=== PATIENT | female | born 1940 | race Caucasian/White ===

== ENCOUNTER 2025-06-12 12:42 | Outpatient (AMB) | payer MEDICARE, MEDICAID, SELFPAY ==
--- NOTE | 2025-06-12 13:10 | A.OFFPC_ITS ---
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 Required: No Accompanied by: Daughter Allergies amlodipine Adverse Reaction (Intermediate, Verified 06/12/25 13:13) COUGH baclofen Adverse Reaction (Intermediate, Verified 06/12/25 13:13) LEG SWELLING hydrochlorothiazide (From Diovan HCT) Adverse Reaction (Intermediate, Verified 06/12/25 13:13) COUGH lisinopril Adverse Reaction (Intermediate, Verified 06/12/25 13:13) Cough nifedipine Adverse Reaction (Intermediate, Verified 06/12/25 13:13) Cough valsartan (From Diovan HCT) Adverse Reaction (Intermediate, Verified 06/12/25 13:13) COUGH Medication List - Last Reconciled 06/12/25 by Monica Alvarado MD albuterol sulfate mg inhalation QID albuterol sulfate 90 mcg/actuation (Ventolin HFA) 2 puffs inhalation Q4H PRN allopurinol 100 mg PO BID blood sugar diagnostic (FreeStyle Lite Strips) As directed fluticasone propionate 50 mcg/actuation 1 spray intranasal DAILY furosemide 40 mg PO DAILY glimepiride 1 mg PO BID hydralazine 50 mg PO TID lancets (FreeStyle Lancets) As directed levocetirizine 5 mg PO QPM metformin ER 500 mg PO DAILY methimazole 2.5 mg PO 2XW metoprolol tartrate 100 mg PO BID omeprazole 20 mg PO DAILY potassium chloride ER 10 mEq PO BID prednisone 20 mg PO DAILY simethicone (Gas Relief Extra Strength) 125 mg PO QID simvastatin 10 mg PO BEDTIME warfarin 1 - 3 mg PO DAILY Tobacco use date assessed: 06/12/25 Fall risk assessment: 1 Fall in past year Last assessed Fall Risk: 06/12/25 Dental Screening Dental Screen Date: 06/12/25 Did you have a dental visit in the last 12 months?: No Did you have a dental problem in the last 6 months where you did not have access to dental care?: No Was dental information given to patient?: No HPI HPI Comments History of Present Illness Details The patient is an 85 year old female presenting to reestablish care and for management of chronic conditions. Diabetes Mellitus: The patient is on Metformin and glimepiride for diabetes management; foot pain r elated to neuropathy noted. Essential Hypertension: Taking metoprolol and hydralazine for hypertension control, furosemide for prn leg swelling Atrial Fibrillation: Management includes Coumadin; considering home INR monitoring. Established with [facility] coumadin clinic. Hyperthyroidism: Managed with Methimazole; established with [facility] endocrinology Hearing Loss: Diminished hearing; referral to ENT planned Peripheral Neuropathy: Reports sharp, burning pain under feet due to neuropathy; Gabapentin not effective. Asthma-stable Gout-stable Social History: - Difficulty with mobility and uses walk er for ambulation - Hard of hearing and requires further e valuation for hearing loss - Experiencing functional limitations du e to foot pain Review of Systems - Auditory: Reports diminished hearing c apacity -Cardiovascular: Denies new cardiovascul ar symptoms -Neurological: Reports sharp burning and painful neuropathy in feet; - Extremities: Reports leg swelling when not elevated Physical Exam - Gen; NAD - Chest: CTABL - Cardiovascular- soft murmur across pre cordium - Abd: SNTND, +BS - Extremities- Mild edema in bilateral l egs noted, tender to touch Assessment and Plan 1. Diabetes Mellitus - Order A1c lab, trial of lyrica 25mg fo r neuropathy, has seen therapist asst before, will obtain records from previous office, daughter is unsure of name 2. Essential Hypertension - Continue antihypertensives, monitor BP 3. Atrial Fibrillation - Consider home INR monitoring 4. Hyperthyroidism - Order thyroid labs, follow up with end ocrinologist at least annually 5. Sensorineural Hearing Loss - Referral to ENT 6. Peripheral Neuropathy - Start Lyrica 25mg, monitor effectivene ss Follow up in 4 months Discussion Notes During the visit, I discussed the management of the patient's diabetes, hypertension, atrial fibrillation, and hyperthyroidism. I provided details on the initiation of Lyrica for neuropathy and its benefits for managing nerve pain. The possibility of using a home INR monitor was discussed for easier management of her anticoagulation therapy, considering her atrial fibrillation. For her hearing concerns, I recommended a referral to a hearing evaluation center to better address her diminished hearing capacity. Patient Instructions - Start taking Lyrica 25 mg as directed, inform of any side effects. - Follow through with ENT referral for f urther evaluation. - Discuss with family the possibility of home INR monitoring use. [facility] Medical History (Updated 06/12/25 @ 12:36 by Monica Alvarado MD) GERD (gastroesophageal reflux disease) Diabetes mellitus type 2 in obese Gout Hyperthyroidism Primary hypertension Asthma Atrial fibrillation CKD stage 3 secondary to diabetes Surgical History (Updated 06/12/25 @ 12:36 by Monica Alvarado MD) H/O tubal ligation Social History Housing: House Patient Tobacco Use Status: Never used Tobacco e-Cigarette/Vaping Use: Never Used Current occupational status: retired Questionnaire AUDIT C Alcohol Use Questionnaire (AUDIT-C) 1. How often do you have a drink containing alcohol?: Never 3. How often do you have six or more drinks on one occasion?: Never Total Score: 0 Physical exam (Primary Care) Vital Signs: Last Vital Signs Temp 97.1 F 06/12/25 13:15 Pulse 64 06/12/25 13:15 Resp 16 06/12/25 13:15 BP 124/80 06/12/25 13:15 Pulse Ox 96 06/12/25 13:15 BMI result Body Mass Index 41.1 Tobacco/Smoking Status: Tobacco use Status Tobacco use date assessed 06/12/25 06/12/25 13:22 Patient Tobacco Use Status Never used Tobacco 06/12/25 13:22 e-Cigarette/Vaping Use Never Used 06/12/25 13:22 Coding Level of Care Code Est Pt Level 4 (33056) Complex EM visit Add On G2211 Diagnoses Primary hypertension I10 Diabetes mellitus type 2 in obese E11.69; E66.9 Atrial fibrillation I48.91 Hyperthyroidism E05.90 Gout M10.9 Asthma J45.909 Assessment & Plan Assessment & Plan (1) Primary hypertension: Code(s): I10 - Essential (primary) hypertension Category: Medical (2) Diabetes mellitus type 2 in obese: Code(s): E11.69 - Type 2 diabetes mellitus with other specified complication; E66.9 - Obesity, unspecified Category: Medical (3) Atrial fibrillation: Code(s): I48.91 - Unspecified atrial fibrillation Category: Medical (4) Hyperthyroidism: Code(s): E05.90 - Thyrotoxicosis, unspecified without thyrotoxic crisis or storm Category: Medical (5) Gout: Code(s): M10.9 - Gout, unspecified Category: Medical (6) Asthma: Code(s): J45.909 - Unspecified asthma, uncomplicated Category: Medical Plan Plan - Initiate Lyrica, assess neuropathy pain response. - Referral for hearing evaluation. - Consider home INR monitoring. - Continue hypertension management, monitor BP. Orders: Orders Complete Blood Count Auto Diff Today E05.90 - Thyrotoxicosis, unspecified without thyrotoxic crisis or storm, E11.22 - Type 2 diabetes mellitus with diabetic chronic kidney disease, E11.69 - Type 2 diabetes mellitus with other specified complication, E66.9 - Obesity, unspecified, I10 - Essential (primary) hypertension, I48.91 - Unspecified atrial fibrillation, M10.9 - Gout, unspecified, N18.30 - Chronic kidney disease, stage 3 unspecified Ferritin Today E05.90 - Thyrotoxicosis, unspecified without thyrotoxic crisis or storm, E11.22 - Type 2 diabetes mellitus with diabetic chronic kidney disease, E11.69 - Type 2 diabetes mellitus with other specified complication, E66.9 - Obesity, unspecified, I10 - Essential (primary) hypertension, I48.91 - Unspecified atrial fibrillation, M10.9 - Gout, unspecified, N18.30 - Chronic kidney disease, stage 3 unspecified TSH reflex Free T4 Today E05.90 - Thyrotoxicosis, unspecified without thyrotoxic crisis or storm, E11.22 - Type 2 diabetes mellitus with diabetic chronic kidney disease, E11.69 - Type 2 diabetes mellitus with other specified complication, E66.9 - Obesity, unspecified, I10 - Essential (primary) hypertension, I48.91 - Unspecified atrial fibrillation, M10.9 - Gout, unspecified, N18.30 - Chronic kidney disease, stage 3 unspecified Vitamin D 25-OH Total Today E05.90 - Thyrotoxicosis, unspecified without thyrotoxic crisis or storm, E11.22 - Type 2 diabetes mellitus with diabetic chronic kidney disease, E11.69 - Type 2 diabetes mellitus with other specified complication, E66.9 - Obesity, unspecified, I10 - Essential (primary) hypertension, I48.91 - Unspecified atrial fibrillation, M10.9 - Gout, unspecified, N18.30 - Chronic kidney disease, stage 3 unspecified Magnesium Today E05.90 - Thyrotoxicosis, unspecified without thyrotoxic crisis or storm, E11.22 - Type 2 diabetes mellitus with diabetic chronic kidney disease, E11.69 - Type 2 diabetes mellitus with other specified complication, E66.9 - Obesity, unspecified, I10 - Essential (primary) hypertension, I48.91 - Unspecified atrial fibrillation, M10.9 - Gout, unspecified, N18.30 - Chronic kidney disease, stage 3 unspecified Hemoglobin A1c Today E05.90 - Thyrotoxicosis, unspecified without thyrotoxic crisis or storm, E11.22 - Type 2 diabetes mellitus with diabetic chronic kidney disease, E11.69 - Type 2 diabetes mellitus with other specified complication, E66.9 - Obesity, unspecified, I10 - Essential (primary) hypertension, I48.91 - Unspecified atrial fibrillation, M10.9 - Gout, unspecified, N18.30 - Chronic kidney disease, stage 3 unspecified IRON PROFILE Today E05.90 - Thyrotoxicosis, unspecified without thyrotoxic crisis or storm, E11.22 - Type 2 diabetes mellitus with diabetic chronic kidney disease, E11.69 - Type 2 diabetes mellitus with other specified complication, E66.9 - Obesity, unspecified, I10 - Essential (primary) hypertension, I48.91 - Unspecified atrial fibrillation, M10.9 - Gout, unspecified, N18.30 - Chronic kidney disease, stage 3 unspecified Microalbumin, Random (w Creat) Today E05.90 - Thyrotoxicosis, unspecified without thyrotoxic crisis or storm, E11.22 - Type 2 diabetes mellitus with diabetic chronic kidney disease, E11.69 - Type 2 diabetes mellitus with other specified complication, E66.9 - Obesity, unspecified, I10 - Essential (primary) hypertension, I48.91 - Unspecified atrial fibrillation, M10.9 - Gout, unspecified, N18.30 - Chronic kidney disease, stage 3 unspecified Vitamin B12 Today E05.90 - Thyrotoxicosis, unspecified without thyrotoxic maru is or storm, E11.22 - Type 2 diabetes mellitus with diabetic chronic kidney disease, E11.69 - Type 2 diabetes mellitus with other specified complication, E66.9 - Obesity, unspecified, I10 - Essential (primary) hypertension, I48.91 - Unspecified atrial fibrillation, M10.9 - Gout, unspecified, N18.30 - Chronic kidney disease, stage 3 unspecified Uric Acid Today M10.9 - Gout, unspecified Comprehensive Met. Panel Today E11.69 - Type 2 diabetes mellitus with other specified complication, E66.9 - Obesity, unspecified, I10 - Essential (primary) hypertension Lipid Panel Today E11.69 - Type 2 diabetes mellitus with other specified complication, E66.9 - Obesity, unspecified, I10 - Essential (primary) hypertension Referrals Anticoagulation Service/Clinic I48.91 - Unspecified atrial fibrillation Medications: New pregabalin (Lyrica) 25 mg PO BEDTIME 90 caps 1RF
[2025-06-12 13:15] VITALS: BP 124/80; PULSE 64; RESP 16; TEMP 36.2; O2SAT 96; BMI 41.1
--- OUTSIDE RECORDS SUMMARY | 2025-06-12 15:24 | XMS_ITS | Data Portability ---
Author Organization [place] - [facility], [facility] - [facility] Address [address] [place] [address] Care Team Providers Care Coat Padder Name Role Phone MARK LIN Primary Care Provider [phone] Assessment Encounter Date Assessment Date Assessment LastModified by Organization Details LastModified Time 08/16/2018 08/16/2018 Overview/History : 78 yo female with past medical history significant for asthma, CAD, depression, diabetes, high cholesterol, HTN who presents with complain of redness, swelling and pain of a left great toe X4 days. Patient rates her pain at 10/10; states symptoms started instantly. Denies injury, open wounds, or similar symptoms in the past. Patient tried rubbing Vicks, ice, elevation, and Epson salt soaks with little to none relief. She also took Tylenol with codeine for pain. Denied ever, chills, swelling of other joints, myalgias, open wounds, recent hospitalization, shortness of breath, cough, chest pain or pain with deep breaths Exam: elderly female well nourished, well developed, non toxic or ill appearing; in no acute distress Heart RRR without audible murmurs Lungs are clear to auscultation bilaterally lower extremities are well perfused without cyanosis or edema left great toe is swollen, erythematous warm to touch and painful to palpation DDx considered, but not limited to: Gout - most likely diagnosis based on clinical presentation DVT - possible, unilateral leg swelling patient has history of intermittent afib, on warfarin, last INR unknown; will order US Septic arthritis - unlikely bursitis - unlikely Work up/Results: Doppler US left lower extremity pending Chem 8 : Na 135; K 2.7; Cl 90; iCa 1.11; TCO2 34; Glu 138; BUN 34; Crea 1.3; HCT 38; Hb 12.9; angap 16 Plan/Discussion: - Based on clinical presentation Gout flare is the most likely diagnosis - will order doppler US of left lower extremity to r/o DVT - Chem 8 notable for K of 2.7; patient stopped taking her K supplement; Advised pat to restart K supplements and follow up with PCP within 2-3 days - I discussed the patient case with Dr. Murdock and under their direction they prescribed the following medications: Colchecine 0.6 PO day 1 take 2 tabs; day 2-6 take 1 tab a day; Zofran 4mg PO 1tab TID PRN for nausea; Naproxen 500mg PO 1 tab BID PRN for pain - advised patient on nausea and diarrhea as side effects of colchecine - provided patient education about gout - follow up with PCP, Dr. Lin, if symptoms do not resolve or worsen with treatment - seek immediate medical attention if your symptoms worsen, you develop fever, chills, severe pain, can't feel your toes, increased swelling or any other concerning symptoms. Time On Scene with Patient: 00:59:02 [email or web address] Not available 08/17/2018 16:53:30 04/16/2020 04/16/2020 Overview/History : 79yoF known to pmx afib, HTN, HDL, lymphedema, NIDM is seen today for diarrhea. The patient filled a new rx of Metformin last week and developed diarrhea. She was called by the pharmacy stating the Metformin was recalled and given a new rx with a new lot number. The patient has not yet taken it for the past 2 days as she is nervous to again have diarrhea. She denies hematochezia, melena, abdominal pain, nausea, vomiting, or recent abx use. The patient has also been on prednisone for suspected gout in her LE. Reports elevated sugars and some increase in LE swelling. Patient does admit to eating ham and cheese sandwiches daily. Reports slight sob without cough or fever. No chest pain. Exam: VSS patient well appearing sitting comfortably on the cough Heart irreg irreg +2 bilat pitting edema without any calf redness or pain Lungs CTA bilat Abdomen soft and non tender DDx considered, but not limited to: hyperglycemia doubt DKA as no sig elevated anion gap and patient is without nausea or vomiting C diff-doubt as no recent abx use or known exposure diverticulitis-mata bt as no long or abdominal pain GI bleed-doubt as HH stable CHF overload-considere d with worsened LE edema and diet high in salt PE doubt as patient not tachycardic or hypoxic and patient is on Warfarin Work up/Results: chem 8 performed demonstrating hypokalemia and elevated glucose Plan/Discussion: Patient is hemodynamically stable non toxic appearing. Patient encouraged to restart Metformin as she was given a nex rx with a new lot number. Patient was educated on low sodium low carb diet. Patient was also educated on importance of taking her furosemide as she does appear to have some swelling in her LE. She will stop her Prednisone at this time as she is not demonstrating any signs of gout at this time and that could be contributing to her elevated blood sugars and LE swelling. The patient was instructed that if with these changes she continues to have diarrhea, LE swelling or uncontrolled blood sugars to again seek medical care. The daughter is actively working on follow up with the PCP. Both the patient and daughter verbalized understanding of overall plan and were agreeable. In order to obtain further information and compare any laboratory results/values, I have accessed old patient records. This information was pertinent in my medical decision making today. Lab Results BMP + ionized calcium, serum or plasma glu: 219mg/dL ref: 70-105 BUN: 23mg/dL ref: 8-26 crea: 1.0mg/dL ref: 0.6-1.3 Na: 136mmol/L ref: 138-146 K: 3.0mmol/L ref: 3.5-4.9 cL: 94mmol/L ref: 98-109 TCO2: 28mmol/L ref: 24-29 angap: 17mmol/L ref: 10-20 ica: 1.19mmol/L ref: 1.12-1.32 HCT: 41%pcv ref: 37-47 Hb: 13.9g/dL ref: 12-17 Time On Scene with Patient: 00:41:52 [email or web address] Not available 04/17/2020 12:35:15 04/05/2021 04/05/2021 Proper Personal Protective Equipment (PPE), including gloves, gown, shoe covers, eye protection and masks were donned and doffed appropriately and all equipment cleaned using approved technique with germicidal disposable wipes prior to and after care of this patient according to [facility]'s infection prevention protocols. Overview/History: 80 yo Turkish speaking female who two daughters are present and assisting with interpretation and HPI. PMHx includes asthma, CAD, depression, NIDDM, HLD, HTN, hypothyroidism, AFIB. Patient has been exposed to influenz through contact with her grand children. Symptoms of fever, chills, runny nose, congestion, cough, malaise, fatigue stated about four days ago. Patient has poor PO intake Exam: Non-toxic appearing, well nourished. A/Ox2, forgetful at baseline. HEENT: Normal cephalic, skin intact. PERRLA, normal mucous membranes, no evidence of foreign objects. Turbinates pink, non boggy, no erythema, no evidence of bleeding or discharge, normal mucous membranes. No evidence of thrush, normal appearing pharynx, tonsils present non erythemic, no exudate present, no evidence of cobble stoning. Normal lymph nodes, no lymphedema or adenopathy. LS CTA bilaterally. Normal RR on RA. No use of accessory muscles. HR and rhythm regular. S1, S2. No murmur, gallop, or rub/ Normal pulses. No edema. BS x4 quad. Abd soft, non-tender and non-distended. No hepatosplenomegaly . No CVA or suprapubic tenderness. Normal ROM, ambulating well around home without assistive device. Good CMS present. No rash, erythema or ecchymosis. Skin is clean dry and intact without evidence of wounds or lacerations. DDx considered, but not limited to: viral syndrome most likely with known sick contact, symptoms. COVID-19 possible with known sick contact, symptoms, delta variant most prevalent in the community, Hypokalemia w/Potassium at 2.3 via POC chem 8, on repeat 2.5 Work up/Results: POC rapid COVID-19 which resulted negative, POC chem 8: K 2.3, repeat K 2.5 Plan/Discussion: POC rapid COVID-19, POC chem 8: K 2.3, repeat K 2.5; Glucose 173. Discussed with patient and family hypokalemia is serious and needs to be replaced in the hospital setting where she can be monitored. Called and spoke with supervising physician Dr. Robins who agreed; potassium in the low 2's with PMHx of AFIB is appropriate for escalation; I agreed with Dr. Robins. Discussed escalation to ED with family and patient; all agreed[facility] I called [facility] expect line and gave report. #20 PIV in left AC with IVNS 600ml infused; saline locked for trip to the ED w/EMS.Report given to EMS, patient transported via stretcher into ambulance w/o trouble. Family following ambulance to hospital. In order to obtain further information and compare any laboratory results/values, I have accessed patient records on the [employer]. This information was pertinent in my medical decision making today. [email or web address] Not available 04/05/2021 19:44:48 Plan of Treatment Reminders Order Date Submit Date Provider Last Modified By Organization Details Last Modified Time Details Appointments None recorded. Lab rapid SARS CoV + SARS CoV 2 Ag, QL IA, respiratory specimen 2020 021 [email or web address] [facility], [address], [place], [address], 1 19:18:54 BMP + ionized calcium, serum or plasma 2020 [facility] [address], [place], [address], 1 21:54:02 BMP + ionized calcium, serum or plasma 2019 [facility] [address] [place], [address], 1 05:01:36 BMP + ionized calcium, serum or plasma 2018 [email or web address], [address], [place], [address], 9 21:42:33 Referral None recorded. Procedures None recorded. Surgeries None recorded. Imaging US, duplex, venous, lower extremity 2018 019 [facility] [address], [place], [address], 9 19:19:29 Medication Orders sodium chloride 0.9 % intravenous solution 2020 021 [email or web address] Not available 12:41:09 potassium chloride ER 10 mEq tablet,exte nded release 2019 020 [email or web address] Not available 19:48:58 Patient TargetsNo targets recorded. Patient Instructions Encounter Date Encounter Id Patient Instructions Last Modified By Organization Details Last Modified Time 08/16/2018 [id number] YOU WERE SEEN FO R LEFT LEG PAIN AND SWELLING. BASED ON PHYSICAL EXAM YOU HAVE GOUT FLARE. I ORDER ULTRASOUND OF YOUR LEG TO BE DONE AT HOME. WE WILL NOTIFY YOU WHEN RESULTS ARE AVAILABLE. YOUR POTASSIUM LEVELS ARE LOW, PLEASE START TAKING YOUR POTASSIUM SUPPLEMENTS. I SENT PRESCRIPTION FOR COLCHECINE, NAPROXEN, AND ZOFRAN TO YOUR PHARMACY. PLEASE, TAKE DIRECTED. NAUSEA AND DIARRHEA ARE COMMON SIDE EFFECTS OF THE MEDICATION YOU WILL BE TAKING FOR GOUT. IF YOU DEVELOPE LOOSE STOOL STOP TAKING COLCHECINE. YOU MAY ALSO STOP TAKING COLCHECINE IF YOUR PAIN RESOLVES YOU CAN TAKE ZOFRAN FOR NAUSEA AND NAPROXEN FOR PAIN PLEASE, FOLLOW UP WITH YOUR PRIMARY CARE DOCTOR WITHIN 2-3 DAYS SEEK IMMEDIATE MEDICAL ATTENTION IF YOUR PAIN GETS WORSE DESPITE TREATMENT, YOUR CANT'S FEEL YOUR TOES, DEVELOPE FEVER CHILLS, INCREASED SWELLING OR ANY OTHER CONCERNING SYMPTOMS GOUT OVERVIEW Gout is a form of arthritis that can cause pain and swelling in the joints. It develops in some people who have chronically high levels of urate (also called uric acid) in their blood; urate can form urate crystals that deposit in tissues. The medical term for high blood urate levels is hyperuricemia. Not everyone with hyperuricemia develops gout; up to two-thirds of people with hyperuricemia never develop symptoms, but it is unclear why this is. In people who do have gout, the symptoms result from the body's reaction to deposits of urate crystals in tissues. Although the joints are the most commonly affected part of the body, related crystals called uric acid crystals can form in the kidney or other parts of the urinary tract, where they can occasionally impair kidney function or cause urinary tract stones. Gout is different from another disease called calcium pyrophosphate crystal deposition (CPPD) disease (formerly called pseudogout ), which is discussed separately. This other condition develops in some people in response to the presence of a different type of crystal known as a calcium pyrophosphate (CPP) crystals. GOUT RISK FACTORS Gout usually develops in adulthood and is rare in children. It commonly develops earlier in adult men (often at ages 30 to 45 years) than in women (usually after age 55) and is particularly common in people older than 65 regardless of gender. It is estimated that gout affects nearly 4 percent of adults in the [place]. There are several medical conditions and lifestyle factors that increase a person's risk of developing gout, including: Obesity High blood pressure Chronic kidney disease Fasting Consuming excessive amounts of alcohol (particularly beer, whiskey, gin, vodka, or rum) on a regular basis Overeating Consuming large amounts of meat, seafood, or beverages containing high fructose corn syrup (such as non-diet sodas) Taking medications that affect blood levels of urate (especially diuretics) In people already diagnosed with gout (referred to as established gout ), there are also certain characteristics that increase the risk of repeated gout flares. These include: Injury or recent surgery Fasting Consuming excessive amounts of alcohol (wine may also be implicated as a risk for additional gout flares in people who have had prior flares) Overeating Taking medications that affect blood levels of urate GOUT SYMPTOMS Gout flares (also called gout attacks) are sudden episodes of severe joint pain, usually with redness, swelling, and tenderness of the joint. Although a gout flare typically affects a single joint, some people develop a few inflamed joints at the same time. Gout flares start more often overnight and in the general car yard supervisor hours than during the day, but they can occur at any time. The pain and inflammation usually reach their peak intensity within 12 to 24 hours and generally improve completely within a few days to several weeks, even if untreated. It is not clear how the body turns off a gout flare. The characteristic pain and inflammation of gout develop when white blood cells and cells in the joint linings attempt to surround and digest urate crystal deposits. These cells recognize the crystal deposits as foreign material and release chemical signals that contribute to the pain, swelling, and redness associated with a gout flare. PHASES OF GOUT There are three main phases of gout: gout flare, intercritical gout, and tophaceous gout. Gout flare Initial gout flares usually involve a single joint, most often your big toe or knee. Over time, flares can begin to involve multiple joints at once and may be accompanied by fever. People with osteoarthritis in their fingers may experience their first gout flares in the fingers rather than the toes or knees. Intercritical gout The time between gout flares is known as an intercritical period. A second gout flare typically occurs within two years, and additional gout flares may occur thereafter. If your gout is untreated over a period of several years, the time between gout flares may shorten, and your gout flares may become increasingly severe and prolonged and involve multiple joints. Tophaceous gout People who have repeated gout flares or persistent hyperuricemia for many years can develop tophaceous gout. This term describes the accumulation of large numbers of urate crystals in masses called tophi. People with this form of gout develop tophi in joints, bursae (the fluid-filled sacs that cushion and protect tissues), bones and cartilage, or under the skin. Tophi may cause erosion of the bone and eventually joint damage and deformity (called gouty arthropathy). Developing tophi near the knuckles or small joints of the fingers (picture 1) can be a distressing cosmetic problem. Tophi are usually not painful or tender. However, they can become inflamed and can cause symptoms like those of a gout flare. Tophaceous gout used to be more common in the past, when treatment for hyperuricemia was unavailable. Certain groups are still at risk for tophaceous gout, including: People who are treated with a medication called cyclosporine after organ transplantation Those who cannot tolerate or do not receive adequate doses of medications to treat hyperuricemia (for example, due to kidney failure or drug allergy) Women who have already been through menopause, especially if they are taking a diuretic medication The known risk factors for gout can also contribute to the development of tophaceous gout. GOUT COMPLICATIONS People with gout are at increased risk of developing kidney stones. This can happen if uric acid crystals build up in the kidney or other parts of the urinary tract. If a stone gets large enough, it can block one of the ureters (the tubes that carry urine from the kidney to the bladder and out of the body) . Medications that increase the amount of uric acid excreted by the kidneys, which are commonly used in people with frequent or severe gout flares, may increase the risk of developing kidney stones. The most common symptom of kidney stones is pain in the side of the back ( flank pain ). Kidney stones caused by uric acid crystals occur in approximately 15 percent of people with gout. This compares with an 8 percent risk of kidney stones in people without gout. Sometimes these kidney stones also contain calcium crystals. GOUT DIAGNOSIS There are many illnesses that can cause joint pain and inflammation. Gout is strongly suspected if a person has an acute attack of joint pain, followed by a period in which there are no symptoms. It is important to confirm the diagnosis of gout to ensure that potentially harmful medications are not taken unnecessarily over a prolonged period of time. The best way to diagnose gout is for a doctor to examine the fluid lining the affected joint (synovial fluid) under a microscope to look for urate crystals. To do this, he or she uses a needle and syringe to withdraw a small amount of fluid from inside the joint. Tophi located just beneath the skin can also be sampled with a needle to diagnose tophaceous gout. If it is not possible to do a synovial fluid analysis, a doctor can make a tentative diagnosis of gout based on your symptoms, a physical examination, and blood tests. Among the clinical criteria for suspecting gout are: Rapidly developing pain and inflammation initially involving one joint at a time, especially the joint at the base of the large toe Complete resolution of symptoms between flares A blood test showing high levels of urate (most accurate for diagnosis after a gout flare resolves) TREATMENT OF GOUT FLARES The goal of treatment of gout flares is to reduce your pain, inflammation, and the accompanying disability quickly and safely. This treatment is usually short-term and limited to the duration of the flare. Deciding which medication to use is based upon several factors, including your risk of bleeding, kidney health, and whether you have a past history of an ulcer in the stomach or small intestine. Antiinflammatory medications are the best treatment for gout flares and are best started early in the course of a gout flare. If you have a history of gout, your doctor can give you medication to keep on hand in the event of a flare. This is important because early treatment is hernandez in minimizing the amount of time it takes to decrease the pain, severity, and duration of a flare. Glucocorticoids Antiinflammatory steroids, also known as glucocorticoids, are effective and frequently used medications for treating gout flares. They may be given orally (as pills), by direct injection into an involved joint (called an intraarticular injection), or, in certain circumstances, by intravenous (IV) or intramuscular injection. Commonly used oral glucocorticoids include prednisone, prednisolone, and methylprednisolone. Oral glucocorticoids can be given to people with impaired kidney function or at increased risk for bleeding, as well those with multiple affected joints or who cannot take nonsteroidal antiinflammatory drugs (NSAIDs) or colchicine. Certain people are generally not candidates for glucocorticoid treatment, including those who have poorly controlled diabetes, in whom infection is a concern, or who cannot tolerate steroids for some other reason. Reducing the dose of glucocorticoids too quickly in the setting of increasingly frequent gout flares can increase your risk of a recurrent flare (called a rebound flare). In these cases, your dose of glucocorticoid should be reduced slowly over a period of at least 14 to 21 days. Your doctor will work with you to figure out how to reduce (or taper ) your dose. Nonsteroidal antiinflammatory drugs NSAIDs work to reduce swelling in a joint and include ibuprofen (sample brand names: Advil, Motrin), naproxen (sample brand names: Aleve, Anaprox), indomethacin (brand name: Indocin), and celecoxib (brand name: Celebrex). NSAIDs are generally recommended for people under age 65 who have no history of kidney or liver disease, have no bleeding problems, do not use anticoagulant medications such as warfarin (brand name: Coumadin), and have no history of a stomach or duodenal ulcer. (See Patient education: Nonsteroidal antiinflammatory drugs (NSAIDs) (Beyond the Basics) .) NSAIDs are most effective in the treatment of a gout flare when they are started as early as possible in the flare and when taken in higher doses than when used for minor pain relief alone (at which they have antiinflammatory, not just pain-relieving, properties). Your doctor will work with you to figure out the most appropriate NSAID dose. People who have had previous flares may start taking an NSAID at the first signs of a recurrence. NSAID treatment is stopped within a day or two of the resolution of the gout flare. Although aspirin is an NSAID, it is not usually recommended for the treatment of gout because it can, depending upon the dose, either raise or lower urate levels in the blood. Colchicine A medication called colchicine may be prescribed instead of an NSAID. Colchicine does not increase the risk of ulcers, has no known interaction with anticoagulants ( blood thinners ), and, in proper doses, does not affect kidney function. However, colchicine can have bothersome side effects when given in excess, including diarrhea, nausea, vomiting, and crampy abdominal pain. Lower doses of colchicine than formerly used have been shown to be as effective for gout flares as the higher doses recommended in the past, and the gastrointestinal side effects have been much less of a problem. Colchicine therapy seems to be most effective when started within 24 hours of the first symptoms of a gout flare. Colchicine should be taken only as a pill. The dose of colchicine should be reduced in people with impaired kidney function. IV colchicine should be avoided because of potentially severe adverse effects. PROPHYLACTIC ANTIINFLAMMATORY GOUT THERAPY Prophylactic (preventive) antiinflammatory therapy aims to prevent or reduce the occurrence of gout flares. Colchicine is usually recommended as prophylactic therapy; it is taken daily at low doses to avoid gastrointestinal side effects. Colchicine reduces the frequency of gout flares, particularly while starting drugs that lower urate levels. Prophylactic colchicine is not usually used alone as a long-term treatment (ie, for years), but can serve as a helpful bridge if you are transitioning from treating a gout flare to longer-term urate-lowering therapy. Although not nearly as well-studied as colchicine, daily nonsteroidal antiinflammatory drugs (NSAIDs) are sometimes used for prophylactic therapy and may have an advantage for people who also have osteoarthritis (due to their pain-relieving properties). LONG-TERM URATE-LOWERING THERAPY Therapy to prevent progression of gout may include medications and lifestyle changes that can be used long-term to lower urate levels and thus prevent or reverse the urate crystal deposits that cause worsening of gout. Progressive gout can cause severe gouty arthropathy (joint damage), disability, kidney stone formation, and possibly kidney damage. People who have one or more of these complications are especially encouraged to take a urate-lowering treatment. Not everyone with gout will require urate-lowering therapy; if you only have rare or mild flares, you may be able to manage your gout by treating the flares alone; however, if progression to joint damage or tophus development occurs, you may need urate-lowering medication. On the other hand, if you have frequent gout flares or flares that are unusually prolonged, painful, or disabling, or involve gouty joint damage or tophi, your doctor will likely suggest urate-lowering therapy. Medications Urate-lowering medications lower urate levels in one of three ways: they increase uric acid elimination by the kidneys; they decrease production of urate; or they convert urate to a substance called allantoin, which is more easily excreted by the body. Urate-lowering therapy is usually started after a gout flare has resolved. People who take their medication regularly and maintain urate levels below the target range over months to years eventually experience fewer flares. Doctors recommend that preventive therapy be continued indefinitely because there is no benefit to taking a break from medication. Allopurinol (brand names: Alloprim, Zyloprim) and febuxostat (brand names: Uloric, Adenuric) work by preventing the formation of urate. Allopurinol is the most commonly used drug for lowering urate levels in people with gout. Allopurinol can cause side effects, including rash, lowered white blood cell and platelet counts, diarrhea, and fever, although these problems occur in a small percentage of people. The starting dose of allopurinol needs to be reduced in people with impaired kidney function, but doses can usually be gradually increased to achieve the target urate level. No such dose-lowering concern is present with febuxostat when used at the approved doses. Periodic measurement of liver function is recommended during treatment with febuxostat and with allopurinol. Febuxostat should be used with caution in people at high risk of cardiovascular disease. Probenecid increases the efficiency of uric acid excretion by the kidney and is called a uricosuric drug. Benzbromarone is a more potent uricosuric drug but is not available in the [place]. Both drugs can cause side effects, including rash, upset stomach, and kidney stone formation. Effective probenecid use requires two or three doses daily. Probenecid is not effective in patients with advanced kidney disease. Losartan (brand name: Cozaar) is used to treat high blood pressure but also has a useful, though weak, urate-lowering effect, as does the lipid-lowering drug fenofibrate. These agents can be useful adjuncts to urate-lowering treatment with allopurinol or febuxostat or with lifestyle modifications in gout patients with high blood pressure or high blood lipid levels, respectively. Lesinurad (brand name: Zurampic) can be given in addition to either allopurinol or febuxostat if a person's urate levels are still too high after taking one of those drugs. Lesinurad should not be used alone; it should be prescribed along with either allopurinol or febuxostat. Lesinurad is also available as a combination pill with allopurinol (brand name: Duzallo). Lesinurad can cause side effects, including kidney problems. Close monitoring of kidney function by your doctor is needed when taking lesinurad. Pegloticase (brand name: Krystexxa) works by breaking down urate into allantoin, a substance that is more easily excreted. Pegloticase is given by repeated intravenous (IV) infusions and can lower urate levels rapidly and profoundly. This medication is expensive; may cause allergic-like infusion reactions, some of which can be severe; needs careful monitoring; and is effective in the skilled nursing in only about 50 percent of cases. For these reasons, it is recommended that pegloticase use be limited to people with advanced gout that cannot be controlled with oral urate-lowering therapies. It takes weeks or months to lower urate levels to where they should be. During this period, your doctor will gradually adjust your medication doses to meet the goal (usually a blood urate level <6 mg/dL). Very rapid urate lowering can cause more frequent gout flares. Increased fluids are recommended during this time (generally at least two liters per day). Antiinflammatory prophylactic therapy (with colchicine or nonsteroidal antiinflammatory drugs [NSAIDs]) (see 'Prophylactic antiinflammatory gout therapy' above) can usually be safely discontinued when blood levels of urate are normal and have been in the goal range for about six months. Some people may need a longer period of prophylactic therapy, particularly if they have tophi. Blood levels of urate should be monitored periodically to ensure that the goal urate level is maintained. Dietary changes Changing your diet may reduce the frequency of gout flares. Because obesity is a risk factor for gout, as well as for many other health conditions, losing weight is an important goal. However, starvation or fad diets are not recommended. Changes in diet are often recommended along with urate-lowering medications. Changing your diet alone is unlikely to lower blood urate levels by more than about 15 percent, even if you make major changes to your diet. On the other hand, if you lose weight in addition to changing your diet, it is possible to see more significant improvements in urate control. Diet guidelines for patients with established gout have changed over time, and it is not completely clear which combination of foods is best. Until validated diet guidelines for gout patients are available, a reasonable approach is to try to establish and maintain a healthy body weight with a balanced diet, and to limit your intake of alcohol and sugar-sweetened drinks. Thank you for your visit with [facility] today. Please follow up with your primary care provider or specialist within 2-3 days to be rechecked or seek medical attention if your symptoms do not go away or get worse. If you develop any new or worsening symptoms and need after hours care, please go to nearest ER and/or call 911. If you have additional concerns or develop a change in your condition between 8am-10pm, please call [facility] at [phone] to help navigate your care. [email or web address] Not available 08/17/2018 16:50:26 04/16/2020 [id number] STOP TAKING THE PREDNISONE ELEVATE THE LEGS TONIGHT SHE SHOULD BEGIN CHECKING HER WEIGHT IN THE MORNING AFTER URINATING SHE MUST RESTART TAKING HER FUROSEMIDE DIRECTED. THIS WILL MAKE HER LEGS FEEL BETTER HAVE HER ELEVATE HER LEGS BEGIN TAKING THE METFORMIN AGAIN TONIGHT AND MONITOR YOUR BLOOD SUGARS NO MORE HAM AND CHEESE SANDWICHES. IF SHE REALLY WANTS A SANDWICH EAT LOW SODIUM TURKEY OR CHICKEN IF THE PATIENT DEVELOPS A FEVER, ABDOMINAL PAIN, CHEST PAIN, SHORTNESS OF BREATHE, WORSENED LEG SWELLING, PLEASE AGAIN SEEK IMMEDIATE MEDICAL CARE HER BLOOD WORK TODAY SHOWED LOW POTASSIUM AND SHE WAS GIVEN A SUPPLEMENT THIS SHOULD BE RECHECKED BY HER PRIMARY CARE PROVIDER AGAIN PLEASE DO NOT HESITATE TO CALL US AGAIN IF SYMPTOMS WORSEN Thank you for your visit with [facility] today. We cannot always find the exact cause of your symptoms during your initial visit. Please follow up with your primary care provider or specialist within 24-48 hours to be rechecked or seek medical attention if your symptoms do not go away or get worse. If you develop any new or worsening symptoms and need after hours care, please go to nearest ER and/or call 911. If you have additional concerns or develop a change in your condition between 8am-10pm, please call [facility] at [phone] to help navigate your care. [email or web address] Not available 04/16/2020 11:25:18 04/05/2021 [id number] Acute Nausea and Vomiting/Diarrhea BASIC INFORMATION Acute nausea and vomiting often start suddenly, worsen quickly, and last a few hours to 24 hours. Nausea and vomiting most often occur together, although they can occur alone. Cases of acute nausea and vomiting are often from gastrointestinal viruses such as norovirus, rotavirus and influenza. Less often it can be caused by toxins released from food that g oes bad as well as some types of bacteria and parasites. Diarrhea can also occur. Your nurse practitioner will conduct a careful history to help determine if you have one of the more serious causes. The cause of your nausea and vomiting may be unknown. INSTRUCTIONS Medicines: 1) Anti-nausea: You may have been given a prescription for an anti nausea medicine such as Zofran, Phenergan or Compazine. These can be used every 6-8 hours to help prevent nausea and vomiting. They can make you sleepy, so do not drive after taking them. Be sure to read all of the drug information from the pharmacy. 2) Tylenol: Low grade fever is common with acute nausea and vomiting. You may use Tylenol, per the recommended dosing on the label, to help control fever. If you have liver disease, do not use Tylenol. Ask your COMMUNITY ASSISTANT how to address fever if you are concerned about Tylenol use. 3) Anti-diarrheal medicines: These are available [id number], but in some cases are not recommended and can even worsen some cases of intestinal problems. Ask your COMMUNITY ASSISTANT if you should use them. In children under 12, the only anti-diarrheal that should be considered is Kaopectate. Diet: 1) For the next 12-24 hours, take clear liquids only. No dairy and no caffeinated beverages. After you have not vomited for a complete hour (either with or without the help of the anti-nausea medicine), begin by taking one tablespoon of clear liquid every 15 minutes for one hour. If you are able to tolerate this, you may increase the amount to 2 tablespoons every hour for the next 2 hours. 2) Clear liquids such as gatorade, pedialyte or broth are recommended because of the electrolytes and sugars that will help replenish the losses from vomiting and diarrhea. 3) If you are able to tolerate clear liquids as instructed above, you may begin to take a bland diet. Plain pasta/noodles or toast are suggestions. If you have had diarrhea, bananas, rice and applesauce are suggested as these can help make the stools more solid. Avoid greasy, fatty or fried foods FOLLOW UP You should make an appointment to see your primary care provider within 24 hours or sooner for worsening condition as described below. If you do not have a primary care doctor, you should follow up with one of the PCP suggestions from [facility]. SEEK CARE IMMEDIATELY IF: 1) You are still unable to tolerate any oral intake after 24 hours 2) You have blood in your vomit or stool 3) You develop severe abdominal pain that does not go away after an episode of vomiting or diarrhea 4) You have severe dizziness, heart palpitations or are passing out 5) You develop severe muscle cramps or weakness 6) You have not made urine in over 24 hours If you develop any new or worsening symptoms and need after hours care, please go to nearest ER and/or call 911. If you have additional concerns or develop a change in your condition between 8am-10pm, please call [facility] at [phone] to help navigate your care. Not available 04/05/2021 17:43:04 Reason for Referral None Reported. Results Created Date Observation Date Name Description Value Unit Range Abnormal Flag Note LastModifiedBy Organization Detail LastModifiedTime 04/05/20 21 04/05/2021 rapid SARS CoV + SARS CoV 2 Ag, QL IA, respi rator y speci men Covid-19 (ref: neg) negati ve Not Available [facility] - [address] [place], [address], 04/05/2021 19:18:21 04/05/20 21 04/05/2021 rapid SARS CoV + SARS CoV 2 Ag, QL IA, respi rator y speci men Control Visual ized/V alid Not Available [facility] - [address] [place], [address], 04/05/2021 19:18:21 04/05/20 21 04/05/2021 rapid SARS CoV + SARS CoV 2 Ag, QL IA, respi rator y speci men [facility] , [address] [place] [address], [id number] Not Available [facility] - [facility] [address] [facility] [place], [address], 04/05/2021 19:18:21 08/16/1908/16/2018 BMP + ioniz ed calci um, serum or plasm a Na 135 mmol/ L 136-14 5 Not Available [facility] - [facility] [address] [place], [address], 08/16/2018 21:05:15 08/16/1908/16/2018 BMP + ioniz ed calci um, serum or plasm a K 2.7 mmol/ L 3.5-5. 1 Not Available [facility] - Home [address] [place], [address], 08/16/2018 21:05:15 08/16/1908/16/2018 BMP + ioniz ed calci um, serum or plasm a cL 90 mmol/ L 96-111 Not Available [facility] - [facility] [address] [place], [address], 08/16/2018 21:05:15 08/16/1908/16/2018 BMP + ioniz ed calci um, serum or plasm a ica 1.11 mmol/ L 1.1-1. 4 Not Available [facility] - [facility] [address] [place], [address], 08/16/2018 21:05:15 08/16/1908/16/2018 BMP + ioniz ed calci um, serum or plasm a TCO2 34 mmol/ L 20-30 Not Available [facility] - [facility] [address] [place], [address], 08/16/2018 21:05:15 08/16/1908/16/2018 BMP + ioniz ed calci um, serum or plasm a glu 138 mg/dL 70-115 Not Available [facility] - [facility] [address] [place], [address], 08/16/2018 21:05:15 08/16/1908/16/2018 BMP + ioniz ed calci um, serum or plasm a BUN 34 mg/dL 6-24 Not Available [facility] - [address] [place], [address], 08/16/2018 21:05:15 08/16/1908/16/2018 BMP + ioniz ed calci um, serum or plasm a crea 1.3 mg/dL .65-1. 36 Not Available [facility] - Home [address] [place], [address], 08/16/2018 21:05:15 08/16/1908/16/2018 BMP + ioniz ed calci um, serum or plasm a HCT 38 %_pcv 40.6-5 0.3 Not Available [facility] - [address] [place], [address], 08/16/2018 21:05:15 08/16/1908/16/2018 BMP + ioniz ed calci um, serum or plasm a Hb 12.9 g/dL 13.9-1 7.4 Not Available [facility] - [facility] [address] [place], [address], 08/16/2018 21:05:15 08/16/1908/16/2018 BMP + ioniz ed calci um, serum or plasm a angap 16 mmol/ L 6-18 Not Available [facility] - Home [address] [place], [address], 08/16/2018 21:05:15 04/16/2004/16/2020 BMP + ioniz ed calci um, serum or plasm a glu 219 mg/dL 70-105 Not Available [facility] [address] [place], [address], 04/16/2020 11:21:30 04/16/2004/16/2020 BMP + ioniz ed calci um, serum or plasm a BUN 23 mg/dL 8-26 Not Available [facility] [address] [place], [address], 04/16/2020 11:21:30 04/16/20 20 04/16/2020 BMP + ioniz ed calci um, serum or plasm a crea 1.0 mg/dL 0.6-1. 3 Not Available [address], [address], 04/16/2020 11:21:30 04/16/20 20 04/16/2020 BMP + ioniz ed calci um, serum or plasm a Na 136 mmol/ L 138-14 6 Not Available [address], [address], 04/16/2020 11:21:30 04/16/2004/16/2020 BMP + ioniz ed calci um, serum or plasm a K 3.0 mmol/ L 3.5-4. 9 Not Available [address], [address], 04/16/2020 11:21:30 04/16/20 20 04/16/2020 BMP + ioniz ed calci um, serum or plasm a cL 94 mmol/ L 98-109 Not Available [address], [address], 04/16/2020 11:21:30 04/16/20 20 04/16/2020 BMP + ioniz ed calci um, serum or plasm a TCO2 28 mmol/ L 24-29 Not Available [address], [address], 04/16/2020 11:21:30 04/16/20 20 04/16/2020 BMP + ioniz ed calci um, serum or plasm a angap 17 mmol/ L 10-20 Not Available [address], [address], 04/16/2020 11:21:30 04/16/20 20 04/16/2020 BMP + ioniz ed calci um, serum or plasm a ica 1.19 mmol/ L 1.12-1 .32 Not Available [address], [address], 04/16/2020 11:21:30 04/16/20 20 04/16/2020 BMP + ioniz ed calci um, serum or plasm a HCT 41 %pcv 37-47 Not Available [address], [address], 04/16/2020 11:21:30 04/16/20 20 04/16/2020 BMP + ioniz ed calci um, serum or plasm a Hb 13.9 g/dL 12-17 Not Available [address], [address], 04/16/2020 11:21:30 04/05/20 21 04/05/2021 BMP + IONIZ ED CALCI UM, SERUM OR PLASM A glu 165 mg/dL 70-105 Not Available [address], [address], 04/06/2021 21:55:12 04/05/20 21 04/05/2021 BMP + IONIZ ED CALCI UM, SERUM OR PLASM A BUN 20 mg/dL 8-26 Not Available [address], [address], 04/06/2021 21:55:12 04/05/20 21 04/05/2021 BMP + IONIZ ED CALCI UM, SERUM OR PLASM A crea 1.1 mg/dL 0.6-1. 3 Not Available [address], [address], 04/06/2021 21:55:12 04/05/20 21 04/05/2021 BMP + IONIZ ED CALCI UM, SERUM OR PLASM A Na 135 mmol/ L 138-14 6 Not Available [address], [address], 04/06/2021 21:55:12 04/05/20 21 04/05/2021 BMP + IONIZ ED CALCI UM, SERUM OR PLASM A K 2.5 mmol/ L 3.5-4. 9 Not Available [address], [address], 04/06/2021 21:55:12 04/05/20 21 04/05/2021 BMP + IONIZ ED CALCI UM, SERUM OR PLASM A cL 94 mmol/ L 98-109 Not Available [address], [address], 04/06/2021 21:55:12 04/05/20 21 04/05/2021 BMP + IONIZ ED CALCI UM, SERUM OR PLASM A TCO2 24 mmol/ L 24-29 Not Available [address], [address], 04/06/2021 21:55:12 04/05/20 21 04/05/2021 BMP + IONIZ ED CALCI UM, SERUM OR PLASM A angap 20 mmol/ L 10-20 Not Available [address], [address], 04/06/2021 21:55:12 04/05/20 21 04/05/2021 BMP + IONIZ ED CALCI UM, SERUM OR PLASM A ica 1.14 mmol/ L 1.12-1 .32 Not Available [address], [address], 04/06/2021 21:55:12 04/05/20 21 04/05/2021 BMP + IONIZ ED CALCI UM, SERUM OR PLASM A HCT 39 %pcv 38-51 Not Available [address], [address], 04/06/2021 21:55:12 04/05/20 21 04/05/2021 BMP + IONIZ ED CALCI UM, SERUM OR PLASM A Hb 13.3 g/dL 12-17 Not Available [address], [address], 04/06/2021 21:55:12 04/05/20 21 04/05/2021 BMP + IONIZ ED CALCI UM, SERUM OR PLASM A glu 173 mg/dL 70-105 Not Available [address], [address], 04/06/2021 21:54:02 04/05/20 21 04/05/2021 BMP + IONIZ ED CALCI UM, SERUM OR PLASM A BUN 23 mg/dL 8-26 Not Available [address], [address], 04/06/2021 21:54:02 04/05/20 21 04/05/2021 BMP + IONIZ ED CALCI UM, SERUM OR PLASM A crea 1.1 mg/dL 0.6-1. 3 Not Available [address], [address], 04/06/2021 21:54:02 04/05/20 21 04/05/2021 BMP + IONIZ ED CALCI UM, SERUM OR PLASM A Na 133 mmol/ L 138-14 6 Not Available [address], [address], 04/06/2021 21:54:02 04/05/20 21 04/05/2021 BMP + IONIZ ED CALCI UM, SERUM OR PLASM A K 2.9 mmol/ L 3.5-4. 9 Not Available [address], [address], 04/06/2021 21:54:02 04/05/20 21 04/05/2021 BMP + IONIZ ED CALCI UM, SERUM OR PLASM A cL 94 mmol/ L 98-109 Not Available [address], [address], 04/06/2021 21:54:02 04/05/20 21 04/05/2021 BMP + IONIZ ED CALCI UM, SERUM OR PLASM A TCO2 25 mmol/ L 24-29 Not Available [address], [address], 04/06/2021 21:54:02 04/05/20 21 04/05/2021 BMP + IONIZ ED CALCI UM, SERUM OR PLASM A angap 18 mmol/ L 10-20 Not Available [address], [address], 04/06/2021 21:54:02 04/05/20 21 04/05/2021 BMP + IONIZ ED CALCI UM, SERUM OR PLASM A ica 1.13 mmol/ L 1.12-1 .32 Not Available [address], [address], 04/06/2021 21:54:02 04/05/20 21 04/05/2021 BMP + IONIZ ED CALCI UM, SERUM OR PLASM A HCT 42 %pcv 38-51 Not Available [address], [address], 04/06/2021 21:54:02 04/05/20 21 04/05/2021 BMP + IONIZ ED CALCI UM, SERUM OR PLASM A Hb 14.3 g/dL 12-17 Not Available [address], [address], 04/06/2021 21:54:02 08/17/19 19 US, duple x, venou s, lower extre mity No observ ation record ed. [facility]) [address], [place], [address], 08/18/2018 12:36:10 Result Notes None recorded. Procedures Surgical History Date Name Laterality Status Provider Name and Address Organization Details Recorded Time 04/05/20 21 IV Start Procedure - completed ABIOLA HENRIQUEZ NP [address] [place], [address], [place] [facility] 04/05/2021 19:16:57 04/16/20 20 Venipuncture - completed MARQUIS CORNEJO [address], [place], [address], [place] [facility] 04/16/2020 14:51:42 08/16/19 19 Venipuncture - completed MARQUIS MELENDEZ [address], [place], [address], [place] [facility] 08/23/2018 03:49:42 Imaging Results None recorded. Procedure Notes None recorded. Medical Equipment None Reported. Allergies Allergen ID Allergen Name Allergen Category Reaction Reaction Severity Criticality Documentation Date Start Date Code Code System Note Provider Name and Address Organization Details Recorded Time 31660 nifedipin e medicatio n Not available Not available Not available 08/16/2018 7417 RxNorm MARQUIS MELENDEZ [address] [place], [address], [place] [facility] 9 20:56:14 Medications Name Sig Start Date Stop Date Status Note LastModified by Organization Details LastModified Time furosemide 40 mg tablet TAKE 1 TABLET BY MOUTH DAILY active Not Available Not Available No t Available potassium chloride ER 10 mEq capsule,ext ended release TAKE 1 CAPSULE BY MOUTH TWICE A DAY active Not Available Not Available No t Available prednisone 10 mg tablet TAKE 3 TABS ONCE DAILY FOR 3 DAYS, 2 TABS ONCE DAILY FOR 3 DAYS, 1 TAB ONCE DIALY FOR 3 DAYS active Not Available Not Available No t Available ammonium lactate 12 % lotion APPLY TOPICALLY TO AFFECTED AREA TWICE A DAY active Not Available Not Available No t Available FreeStyle Lancets 28 gauge USE ONCE DAILY active Not Available Not Available No t Available prednisone 20 mg tablet TAKE 2 TABLETS BY MOUTH EVERY DAY FOR 5 DAYS active Not Available Not Available No t Available simvastatin 10 mg tablet TAKE 1 TABLET BY MOUTH EVERYDAY AT BEDTIME active Not Available Not Available No t Available atenolol 25 mg tablet 08/16 completed Not Available Not Available Not Available warfarin 2.5 mg tablet TAKE 1 TO 3 TABLETS BY MOUTH DAILY PER COUMADIN REGIMEN. DX ATRIAL FIBRILLAT ION active Not Available Not Available No t Available Calcium Antacid 200 mg (as calcium carbonate 500 mg) chewable tablet CHEW ONE TABLET BY MOUTH TWICE DAILY active Not Available Not Available No t Available potassium chloride ER 10 mEq tablet,exte nded release Take 2 tablets every day by oral route for 1 day. 2020 active Not Available Not Available Not Avai lable acetaminoph en 300 mg-codeine 30 mg tablet 04/05 completed Not Available Not Available Not Available chlorthalid one 25 mg tablet TAKE 1 TABLET BY MOUTH EVERY DAY active Not Available Not Available No t Available allopurinol 100 mg tablet TAKE 1 TABLET BY MOUTH TWICE A DAY active Not Available Not Available No t Available doxycycline monohydrate 100 mg tablet TAKE 1 TABLET BY MOUTH TWICE A DAY FOR 7 DAYS 04/05 completed Not Available Not Available Not Available glimepiride 1 mg tablet TAKE 1 TABLET BY MOUTH EVERY DAY active Not Available Not Available No t Available magnesium oxide 400 mg (241.3 mg magnesium) tablet TAKE 1 TABLET BY MOUTH EVERY DAY FOR 14 DAYS active Not Available Not Available No t Available metoclopram ryann 5 mg tablet 04/05 completed Not Available Not Available Not Available cephalexin 500 mg capsule 08/16 completed Not Available Not Available Not Available metoprolol tartrate 50 mg tablet TAKE 1 TABLET BY MOUTH TWICE A DAY active Not Available Not Available No t Available methimazole 5 mg tablet TAKE 1/2 TABLET BY MOUTH DAILY FOR 60 DAYS , DO NOT TAKE ON WEEKENDS active Not Available Not Available No t Available omeprazole 20 mg capsule,del ayed release TAKE ONE CAPSULE BY MOUTH TWICE DAILY FOR 14 DAYS active Not Available Not Available No t Available calcium 500 mg (as calcium carbonate 1,250 mg) chewable tablet CHEW 1 TABLET BY MOUTH TWICE A DAY active Not Available Not Available No t Available sodium chloride 0.9 % intravenous solution 600mL administe red on scene. Time administe red: 18:24 to 19:10 2020 active Not Available Not Available Not Avai lable epinephrine 0.3 mg/0.3 mL injection, auto-inject or INJECT 0.3 MG INTRAMUSC ULARLY ONCE active Not Available Not Available No t Available albuterol sulfate HFA 90 mcg/actuati on aerosol inhaler INHALE 2 PUFFS EVERY 6 HOURS NEEDED FOR WHEEZING active Not Available Not Available No t Available methimazole 10 mg tablet active Not Available Not Available Not Available metformin ER 500 mg tablet,exte nded release 24 hr TAKE 1 TABLET BY MOUTH EVERY DAY active Not Available Not Available No t Available Klor-Con M20 mEq tablet,exte nded release TAKE 1 TABLET BY MOUTH DAILY FOR 2 DAYS. TAKE IN ADDITION TO REGUALR DOSAGE FOR 2 DAYS active Not Available Not Available No t Available Alcohol Prep Pads active Not Available Not Available No t Available duloxetine 20 mg capsule,del ayed release 04/05 completed Not Available Not Available Not Available Flovent HFA 110 mcg/actuati on aerosol inhaler PLEASE SEE ATTACHED FOR DETAILED DIRECTION S active Not Available Not Available No t Available Calcium 500 active Not Available Not A vailable Not Available Symbicort 160 mcg-4.5 mcg/actuati on HFA aerosol inhaler INHALE 2 PUFFS TWICE A DAY active Not Available Not Available No t Available FreeStyle Lite Strips TESTING ONCE DAILY BEFORE BREAKFAST DX E11.9 active Not Available Not Available No t Available L.acidophil ,salivari-B ifido bifidum-Str ep thermoph 175 mg capsule TAKE 1 CAPSULE BY MOUTH DAILY active Not Available Not Available No t Available Colcrys 0.6 mg tablet active Not Available Not Available No t Available potassium chloride ER 20 mEq tablet,exte nded release TAKE 1 TABLET BY MOUTH DAILY FOR 2 DAYS, TAKE IN ADDITION TO REGULAR DOSAGE FOR 2 DAYS active Not Available Not Available No t Available Flonase Allergy Relief active Not Available Not Available Not Available Vitals Date Recorded Heart rate Respiratory rate Body temperature Oxygen saturation Oxygen saturation in Arterial blood by Pulse oximetry Systolic And Diastolic Provider Name and Address Organization Details Last Updated DateTime 9 75 /min 16 /min 99.1 [degF] 95 % 95 % 140/72 mm[Hg] Not Available [facility] 9 20:57:38 Date Recorded Heart rate Oxygen saturation Oxygen saturation in Arterial blood by Pulse oximetry Body temperature Respiratory rate Systolic And Diastolic Provider Name and Address Organization Details Last Updated DateTime 1 77 /min 92 % 92 % 99.4 [degF] 22 /min 150/80 mm[Hg] Not Available [facility] 1 17:47:19 Date Recorded Heart rate Oxygen saturation Oxygen saturation in Arterial blood by Pulse oximetry Respiratory rate Body temperature Systolic And Diastolic Provider Name and Address Organization Details Last Updated DateTime 0 85 /min 98 % 98 % 22 /min 98.8 [degF] 136/72 mm[Hg] Not Available [facility] 0 10:53:39 Social History Question Answer Notes LastModified by Organizat ion Details LastModified Time Tobacco Smoking Status Never Smoker MARQUIS MELENDEZ [address] [facility] [place], [address], [place] [facility] 08/16/2018 20:59:48 Do You Have An Advance Directive? No Information not available 08/16/2018 What Is Your Code Status? Full Code Information not available 08/16/2018 How Many Days In The Past Year Have You Had A Heavy Drinking Consumption (4+ Female, 5+ Male)? 0 Information not available 08/16/2018 Within The Past 12 Months, Has It Happened That The Food You Bought Just Didn't Last And You Didn't Have Money To Get More. Normal Information not available 08/16/2018 Within The Past 12 Months, Have You Worried That Your Food Would Run Out Before You Got Money To Buy More. Yes Information not available 08/16/2018 Fall Risk: Do You Feel Unsteady When Standing Or Walking? No Information not available 08/16/2018 Marital Status Informatio n not available 08/16/2018 What Was The Date Of Your Most Recent Tobacco Screening? 08/16/2018 Information not available 03/02/2019 Sex: Unknown Functional Status None recorded. Mental Status None recorded. Family History Nothing Reported. Medical History Condition Response Diabetes Y Coronary Artery Disease Y High Cholesterol Y Pulmonary Embolism N Cancer N Stroke N Hypertension Y Depression Y COPD N Asthma Y Kidney Disease N Gynecological HistoryNo gynecological history recorded. Obstetrics History GPAL:G 0 P 0 0 0 0 Past Encounters Encounter ID Performer Location Encounter Start Date Encounter Closed Date Diagnosis/Indication Diagnosis SNOMED-CT Code Diagnosis ICD10 Code Diagnosis IMO Codes Diagnosis Note [id number] [facility] [address] [facility] [address] 08/16/2018 20:47:49 08/17/2018 17:09:07 Gout 13858172 M10.9 Hypokalemia 72208186 E87 .6 patient restarted Potassium supplement s [id number] MARQUIS CORNEJO [facility] [address] [place] [address] 04/16/2020 10:31:42 04/22/2020 13:56:04 Diarrhea 99424978 R19.7 Lymphedema of bilateral lower limbs 6840861098 4287544 I89.0 Hypokalemia 06376953 E87 .6 [id number] ABIOLA HENRIQUEZ NP [facility] [address] [facility] [address] 04/05/2021 17:40:10 04/07/2021 09:34:21 Dehydration 32766591 E86.0 Nausea 877631914 R11.0 Hypokalemia 55966339 E87 .6 Exposure t o communicable disease 888135419 Z20.9 Viral syndrome 910112727 B34.9 Health Concerns Section Related Observation LastModified by Organization Detai ls LastModified Time None Recorded Concern Status LastModified by Organization Details LastModified Time None Recorded Advance Directives Directive N: Payers Insurance Date Sequence Insurance Name Policy Number Policy Buck Covered Member ID Buck Member ID Guarantor Name 04/05/2021 1 [place] [employer] Cyn Urias [id number] Cyn Adenpo 08/16/2018 1 *SELF PAY* Cyn Adenpo [id number] Cyn Adenpo 04/07/2021 2 [place] [facility] Cyn Urias [id number] Cyn Adenpo Notes Date Note Type Note Provider Name and Address Organization Details Recorded Time 08/16/2018 text/html Mrs. Urias is a 78 yo female new to [facility] and this provider who presents with complain of foot pain and swelling. Patient speaks very little Togolese and her two daughters were present on scene to help with language barrier. Patient reports that 4 days ago she noted redness and swelling of her left great toe. She denies any injury or open wounds.Pain started instantly and patient rates her pain as 10/10 at all times. Patient is able to walk and perform activities of daily living. Patient tried rubbing Vicks on the site of discomfort, soaked her foot in Epson salt solution, ice and elevation. She also took Tylenol with codeine which she had left over from prior prescription. Patient states that all the remedies provided little to none relief.Patient denied fever, chills, swelling of other joints, myalgias, open wounds, recent hospitalization, shortness of breath, cough, chest pain or pain with deep breaths. Commorbidities: asthma, CAD, depression, diabetes, high cholesterol, HTN MARQUIS MELENDEZ [address], [place], [address], [place] [facility] 08/23/2018 03:49:53 04/16/2020 text/html 79yo F known to seen in the presence of her daughter who assists in interpretation. Patient with pmhx asthma, CAD, afib on Warfarin (checked this AM), NIDM, HTN, HDL, is seen today for diarrhea and LE swelling. The patient has been on Metformin 500mg daily. Last week she refilled her medication and began with diarrhea. The pharmacy called stating the metformin needed to be recalled. She was given a new rx with a new lot number. She has not yet taken the new medication as she has been scared to have more diarrhea. The patient denies any abdominal pain, fever, nausea, vomiting, or urinary symptoms. Denies any hematochezia or melena. The patient also recently began taking prednisone for her LE pain. She had a tele medicine visit and they were concerned the patient had gout. She has noted her sugars have been high and she has developed more LE swelling. She has also not been compliant with her Lasix and does report eating a ham and cheese sandwich daily. MARQUIS CORNEJO [address], [place], [address], [place] [facility] 04/17/2020 12:35:24 04/05/2021 text/html General HPI Template - DHReported by Patient 80 yo Turkish speaking female who is known to but new to this provider. Her PMHx includes asthma, CAD, depression, NIDDM, HLD, HTN, hypothyroidism, AFIB, Her daughters are present and provider interpretation and HPI. Daughters state that two young children have the flu and had contact and spread to the rest of the family. Patient symptoms of fever, chills, cough, poor apatite began about four days ago. She endorses low energy, mild nausea, cough, runny nose, congestion. She denies any chest pain, palpitations, abominal cramps, vomiting or diarrhea, dark black stools or holly bleeding. Endorses taking all prescription medications. ABIOLA HENRIQUEZ NP [address], [place], [address], [place] [facility] 04/05/2021 19:44:57 OBGyn Episode No OBEpisode recorded.
== END 2025-06-12 14:38 | disposition home or self-care (01) ==
LOC: HO.HMCHD 12:43
PROVIDERS: PCP Internal Medicine; Visit Provider Internal Medicine
DX: I10 Essential (primary) hypertension (principal); E11.69 Type 2 diabetes mellitus with other specified complication; E66.9 Obesity, unspecified; I48.91 Unspecified atrial fibrillation; E05.90 Thyrotoxicosis, unspecified without thyrotoxic crisis or storm; M10.9 Gout, unspecified; J45.909 Unspecified asthma, uncomplicated

== ENCOUNTER → 2025-06-12 12:42 | Outpatient (BNVA) | payer MEDICARE, MEDICAID, SELFPAY | PROVIDERS: PCP Internal Medicine; Visit Provider Internal Medicine | DX: I10 Essential (primary) hypertension (principal); E11.69 Type 2 diabetes mellitus with other specified complication; E66.9 Obesity, unspecified; Z68.41 Body mass index [BMI] 40.0-44.9, adult; I48.91 Unspecified atrial fibrillation; E05.90 Thyrotoxicosis, unspecified without thyrotoxic crisis or storm; M10.9 Gout, unspecified; J45.909 Unspecified asthma, uncomplicated; H90.5 Unspecified sensorineural hearing loss; Z79.01 Long term (current) use of anticoagulants; Z79.84 Long term (current) use of oral hypoglycemic drugs; Z79.899 Other long term (current) drug therapy | CPT/HCPCS: 99212 ==

== ENCOUNTER 2025-06-15 09:33 | Outpatient (REF) | payer MEDICARE, MEDICAID, SELFPAY ==
--- OUTSIDE RECORDS SUMMARY | 2025-06-15 10:57 | XMS_ITS | Clinical Summary ---
Author Organization [facility], Address [address] [place] [address] [place] [address] Phone Care Team Providers Care Marketing Liaison Name Role Phone Monica Alvarado MD Primary Care Provider [phone] Allergies Active Allergy Reactions Criticality Noted Date Comments Amlodipine 06/09/2021 Valsartan 06/09/2021 Hydrochlorothiazide 06/09/2021 Lisinopril 06/09/2021 Nifedipine 06/09/2021 Peanut Oil 06/09/2021 Medications furosemide (LASIX) 40 MG tablet Take 40 mg by mouth 2 (two) times a day Active glimepiride (AMARYL) 1 MG tablet Take 1 mg by mouth 1 (one) time each day before breakfast Active metFORMIN (GLUCOPHAGE) 500 MG tablet Take 500 mg by mouth 2 (two) times a day with meals Active methIMAzole (TAPAZOLE) 5 MG tablet Take 5 mg by mouth 3 (three) times a day Active metoprolol tartrate (LOPRESSOR) 50 MG tablet Take 50 mg by mouth 2 (two) times a day Active potassium chloride (KLOR-CON M10) 10 MEQ CR tablet Take 10 mEq by mouth 1 (one) time each day Do not crush or chew. Active predniSONE (DELTASONE) 10 MG tablet Take 10 mg by mouth 1 (one) time each day Active albuterol HFA (PROVENTIL HFA;VENTOLIN HFA) 108 (90 Base) MCG/ACT inhaler Inhale 2 puffs every 6 (six) hours if needed for wheezing Active simvastatin (ZOCOR) 10 MG tablet Take 10 mg by mouth every night Active budesonide-form oterol (SYMBICORT) 160-4.5 MCG/ACT inhaler Inhale 2 puffs 2 (two) times a day Rinse mouth with water after use to reduce aftertaste and incidence of candidiasis. Do not swallow. Active warfarin (COUMADIN) 1 MG tablet Take 1 mg by mouth 1 (one) time each day Take as directed per After Visit Summary. Active ondansetron (ZOFRAN) 4 MG tablet Take 4 mg by mouth every 8 (eight) hours if needed for nausea or vomiting Active acetaminophen-c odeine (TYLENOL #3) 300-30 MG per tablet TAKE 1 TABLET BY MOUTH 3 TIMES A DAY NEEDED FOR PAIN FOR 5 DAYS 3 Active fluticasone (FLONASE) 50 MCG/ACT nasal spray USE 1 SPRAY INTO EACH NOSTRIL IN THE MORNING FOR 30 DAYS 3 Active FREESTYLE LITE test strip TESTING ONCE DAILY BEFORE BREAKFAST 3 Active Lancets (freestyle) lancets USE TO TEST BLOOD GLUCOSE ONCE DAILY BEFORE BREAKFAST 3 Active levocetirizine (XYZAL) 5 MG tablet Take 5 mg by mouth at bed time 3 Active metFORMIN XR (GLUCOPHAGE-XR) 500 MG 24 hr tablet Take 500 mg by mouth 1 (one) time each day 3 Active potassium chloride (MICRO-K) 10 MEQ CR capsule Take 10 mEq by mouth 3 Active Active Problems Problem Noted Date Diagnosed Date Edema, not otherwise specified 12/30/2022 Stage 3 chronic kidney disease 06/09/2021 Diabetes mellitus 06/09/2021 Hypertension 06/09/2021 Social History Tobacco Use Types Packs/Day Years Used Date Smoking Tobacco: Never Comments Unknown Sex and Gender Information Value Date Recorded Sex Assigned at Not on file Legal Sex Female 10:09 AM EDT Gender Identity Not on file Sexual Orientation Not on file Last Filed Vital Signs Vital Sign Reading Time Taken Comments Blood Pressure 144/82 12/30/2022 1:41 PM EDT Pulse - - Temperature - - Respiratory Rate - - Oxygen Saturation - - Inhaled Oxygen Concentration - - Weight - - Height - - Body Mass Index - - Plan of Treatment Health Maintenance Due Date Last Done Comments Diabetes: Hemoglobin A1C 06/09/2021 Diabetes: Ophthalmology Exam 06/09/2021 Diabetes: Pedal Pulse Checked 06/09/2021 Diabetes: Sensory Foot Exam 06/09/2021 Diabetes: Visual Foot Exam 06/09/2021 Influenza Vaccine (#1) 2025 0, 09/08/2007, 05/24/2006 Pneumococcal Vaccine: 50+ Years Completed 05/13/2020, 01/19/2018, 05/24/2006 Hepatitis B Vaccine Aged Out No longe r eligible based on patient's age to complete this topic Insurance Medicare Medicaid [place] Care Teams Marketing Liaison Relationship Specialty Start Date End Date Monica Alvarado MD [address] [place], [place] PCP - General Internal Medicine 04/28/21
--- OUTSIDE RECORDS SUMMARY | 2025-06-15 10:57 | XMS_ITS | Encounter Summary ---
Author Organization [facility], Address [address] [address] Phone Care Team Providers Care Baby Nurse Name Role Phone Monica Alvarado MD Primary Care Provider [phone]- [phone] Encounter Details Date Type Department Care Team (Late st Contact Info) Description 12/30/2022 Documentation Only [facility], [address] [place] [address] Harman De La Cruz MD [address] [place] [address] Social History Tobacco Use Types Packs/Day Years Used Date Smoking Tobacco: Never Comments Unknown Sex and Gender Information Value Date Recorded Sex Assigned at Not on file Legal Sex Female 10:09 AM EDT Gender Identity Not on file Sexual Orientation Not on file documented as of this encounter Plan of Treatment Not on file documented as of this encounter Visit Diagnoses Not on filedocumented in this encounter Care Teams Baby Nurse Relationship Specialty Start Date End Date Monica Alvarado MD [address] [place], [place] PCP - General Internal Medicine 04/28/21 documented as of this encounter
--- OUTSIDE RECORDS SUMMARY | 2025-06-15 10:58 | XMS_ITS | Data Portability ---
Author Organization [place] - [facility], X - ALF FAC[facility] Address [address] [place] [address] Care Team Providers Care Psychometric Examiner Name Role Phone MARK LIN Primary Care Provider Assessment Encounter Date Assessment Date Assessment LastModified [...] 12-17 Time On Scene with Patient: 00:41:52 Not available 04/17/2020 12:35:15 04/05/2021 04/05/2021 Proper Personal Protective Equipment (PPE), including gloves, gown, shoe covers, eye protection and masks were donned and doffed appropriately and all equipment cleaned using approved technique with germicidal disposable wipes prior to and after care of this patient according to [facility]'s infection prevention protocols. Overview/History: 80 yo Cape Verdean speaking female who two daughters are present [...] ED with family and patient; all agreed. [facility] called EMS. I called [facility] expect line and gave report. #20 PIV in left AC with IVNS 600ml infused; saline locked for trip to the ED w/EMS.Report given to EMS, patient transported via stretcher into ambulance w/o trouble. Family following ambulance to hospital. In order to obtain further information and compare any laboratory results/values, I have accessed patient records on the [employer]. This information was pertinent in my medical decision making today. [email or web address] Not available 04/05/2021 19:44:48 Plan of Treatment Reminders Order Date Submit Date Provider Last Modified By Organization Details Last Modified Time Details Appointments None recorded. Lab rapid SARS CoV + SARS CoV 2 Ag, QL IA, respiratory specimen 2020 021 [email or web address] [facility], [address] [facility], [place], [address], 1 19:18:54 BMP + ionized calcium, serum or plasma 2020 [facility], [address], [place], [address], 1 21:54:02 BMP + ionized calcium, serum or plasma 2019 020 [facility], [address] [place], [address], 1 05:01:36 BMP + ionized calcium, serum or plasma 2018 [email or web address], [address] [facility], [place], [address], 9 21:42:33 Referral None recorded. Procedures None recorded. Surgeries None recorded. Imaging US, duplex, venous, lower extremity 2018 019 [facility] [address], [place], [address], 9 19:19:29 Medication Orders sodium chloride 0.9 % intravenous solution 2020 021 [email or web address] Not available 12:41:09 potassium chloride ER 10 mEq tablet,exte nded release 2019 020 [email or web address] Not available 19:48:58 Patient TargetsNo targets recorded. Patient Instructions Encounter Date Encounter Id Patient Instructions Last Modified By Organization Details Last Modified Time 08/16/2018 [id number] YOU WERE SEEN FO R LEFT LEG [...] start more often overnight and in the sterile instrument technician hours than during the day, but they [...] careful monitoring; and is effective in the custodial in only about 50 percent of cases. [...] drinks. [facility] you [facility]. Please follow up with [...] in your condition between 8am-10pm, please call [facility] at [phone] to help navigate your care. [email or web address] Not available 08/17/2018 16:50:26 04/16/2020 [id number] STOP TAKING THE PREDNISONE ELEVATE THE LEGS [...] WORSEN Thank you for your visit with [facility] today. We cannot always find the exact [...] in your condition between 8am-10pm, please call [facility] at [phone] to help navigate your care. [email or web address] Not available 04/16/2020 11:25:18 04/05/2021 [id number] Acute Nausea and Vomiting/Diarrhea BASIC INFORMATION Acute [...] disease, do not use Tylenol. Ask your ASSISTANT PROFESSOR OF HISTORY how to address fever if you are concerned about Tylenol use. 3) Anti-diarrheal medicines: These are available [id number], but in some cases are not recommended and can even worsen some cases of intestinal problems. Ask your ASSISTANT PROFESSOR OF HISTORY if you should use them. In children [...] with one of the PCP suggestions from [facility]. SEEK CARE IMMEDIATELY IF: 1) You are [...] in your condition between 8am-10pm, please call [facility] at [phone] to help navigate your care. [email or web address] Not available 04/05/2021 17:43:04 Reason for Referral None Reported. Results Created Date Observation Date Name Description Value Unit Range Abnormal Flag Note LastModifiedBy Organization Detail LastModifiedTime 04/05/20 21 04/05/2021 rapid SARS CoV + SARS CoV 2 Ag, QL IA, respi rator y speci men Covid-19 (ref: neg) negati ve Not Available [facility] - [facility] [address] [place], [address], 04/05/2021 19:18:21 04/05/20 21 04/05/2021 rapid SARS CoV + SARS CoV 2 Ag, QL IA, respi rator y speci men Control Visual ized/V alid Not Available [facility] - [facility] [address] [place], [address], 04/05/2021 19:18:21 04/05/20 21 04/05/2021 rapid SARS CoV + SARS CoV 2 Ag, QL IA, respi rator y speci men [email or web address] , [address] [place] [address], [id number] Not Available [facility] - Home [address] [facility] [place], [address], 04/05/2021 19:18:21 08/16/1908/16/2018 BMP + ioniz ed calci um, serum or plasm a Na 135 mmol/ L 136-14 5 Not Available [facility] - Home [address] [place], [address], 08/16/2018 21:05:15 08/16/1908/16/2018 BMP + ioniz ed calci um, serum or plasm a K 2.7 mmol/ L 3.5-5. 1 Not Available [facility] - [facility] [address] [place], [address], 08/16/2018 21:05:15 08/16/1908/16/2018 BMP + ioniz ed calci um, serum or plasm a cL 90 mmol/ L 96-111 Not Available [facility] - Home [address] [place], [address], 08/16/2018 21:05:15 08/16/1908/16/2018 BMP + ioniz ed calci um, serum or plasm a ica 1.11 mmol/ L 1.1-1. 4 Not Available [facility] - Home [address] [place], [address], 08/16/2018 21:05:15 08/16/1908/16/2018 BMP + ioniz ed calci um, serum or plasm a TCO2 34 mmol/ L 20-30 Not Available [facility] - Home [address] [place], [address], 08/16/2018 21:05:15 08/16/1908/16/2018 BMP + ioniz ed calci um, serum or plasm a glu 138 mg/dL 70-115 Not Available [facility] - Home [address] [place], [address], 08/16/2018 21:05:15 08/16/1908/16/2018 BMP + ioniz ed calci um, serum or plasm a BUN 34 mg/dL 6-24 Not Available [facility] - [facility] [address] [place], [address], 08/16/2018 21:05:15 08/16/1908/16/2018 BMP + ioniz ed calci um, serum or plasm a crea 1.3 mg/dL .65-1. 36 Not Available [facility] - [facility] [address] [place], [address], 08/16/2018 21:05:15 08/16/1908/16/2018 BMP + ioniz ed calci um, serum or plasm a HCT 38 %_pcv 40.6-5 0.3 Not Available [facility] [address] [place], [address], 08/16/2018 21:05:15 08/16/1908/16/2018 BMP + ioniz ed calci um, serum or plasm a Hb 12.9 g/dL 13.9-1 7.4 Not Available [facility] [address] [place], [address], 08/16/2018 21:05:15 08/16/1908/16/2018 BMP + ioniz ed calci um, serum or plasm a angap 16 mmol/ L 6-18 Not Available [facility] [address] [place], [address], 08/16/2018 21:05:15 04/16/2004/16/2020 BMP + ioniz ed calci um, serum or plasm a glu 219 mg/dL 70-105 Not Available [facility] [address] [place], [address], 04/16/2020 11:21:30 04/16/2004/16/2020 BMP + ioniz ed calci um, serum or plasm a BUN 23 mg/dL 8-26 Not Available [facility] [address] [place], [address], 04/16/2020 11:21:30 04/16/20 20 04/16/2020 BMP + ioniz ed calci um, serum or plasm a crea 1.0 mg/dL 0.6-1. 3 Not Available [address], [address], 04/16/2020 11:21:30 04/16/20 20 04/16/2020 BMP + ioniz ed calci um, serum or plasm a Na 136 mmol/ L 138-14 6 Not Available [address], [address], 04/16/2020 11:21:30 04/16/2004/16/2020 BMP + ioniz ed calci um, serum or plasm a K 3.0 mmol/ L 3.5-4. 9 Not Available [address], [address], 04/16/2020 11:21:30 04/16/20 20 04/16/2020 BMP + ioniz ed calci um, serum or plasm a cL 94 mmol/ L 98-109 Not Available [address], [address], 04/16/2020 11:21:30 04/16/20 20 04/16/2020 BMP + ioniz ed calci um, serum or plasm a TCO2 28 mmol/ L 24-29 Not Available [address], [address], 04/16/2020 11:21:30 04/16/20 20 04/16/2020 BMP + ioniz ed calci um, serum or plasm a angap 17 mmol/ L 10-20 Not Available [address], [address], 04/16/2020 11:21:30 04/16/20 20 04/16/2020 BMP + ioniz ed calci um, serum or plasm a ica 1.19 mmol/ L 1.12-1 .32 Not Available [address], [address], 04/16/2020 11:21:30 04/16/20 20 04/16/2020 BMP + ioniz ed calci um, serum or plasm a HCT 41 %pcv 37-47 Not Available [address], [address], 04/16/2020 11:21:30 04/16/20 20 04/16/2020 BMP + ioniz ed calci um, serum or plasm a Hb 13.9 g/dL 12-17 Not Available [address], [address], 04/16/2020 11:21:30 04/05/20 21 04/05/2021 BMP + IONIZ ED CALCI UM, SERUM OR PLASM A glu 165 mg/dL 70-105 Not Available [address], [address], 04/06/2021 21:55:12 04/05/20 21 04/05/2021 BMP + IONIZ ED CALCI UM, SERUM OR PLASM A BUN 20 mg/dL 8-26 Not Available [address], [address], 04/06/2021 21:55:12 04/05/20 21 04/05/2021 BMP + IONIZ ED CALCI UM, SERUM OR PLASM A crea 1.1 mg/dL 0.6-1. 3 Not Available [address], [address], 04/06/2021 21:55:12 04/05/20 21 04/05/2021 BMP + IONIZ ED CALCI UM, SERUM OR PLASM A Na 135 mmol/ L 138-14 6 Not Available [address], [address], 04/06/2021 21:55:12 04/05/20 21 04/05/2021 BMP + IONIZ ED CALCI UM, SERUM OR PLASM A K 2.5 mmol/ L 3.5-4. 9 Not Available [address], [address], 04/06/2021 21:55:12 04/05/20 21 04/05/2021 BMP + IONIZ ED CALCI UM, SERUM OR PLASM A cL 94 mmol/ L 98-109 Not Available [address], [address], 04/06/2021 21:55:12 04/05/20 21 04/05/2021 BMP + IONIZ ED CALCI UM, SERUM OR PLASM A TCO2 24 mmol/ L 24-29 Not Available [address], [address], 04/06/2021 21:55:12 04/05/20 21 04/05/2021 BMP + IONIZ ED CALCI UM, SERUM OR PLASM A angap 20 mmol/ L 10-20 Not Available [address], [address], 04/06/2021 21:55:12 04/05/20 21 04/05/2021 BMP + IONIZ ED CALCI UM, SERUM OR PLASM A ica 1.14 mmol/ L 1.12-1 .32 Not Available [address], [address], 04/06/2021 21:55:12 04/05/20 21 04/05/2021 BMP + IONIZ ED CALCI UM, SERUM OR PLASM A HCT 39 %pcv 38-51 Not Available [address], [address], 04/06/2021 21:55:12 04/05/20 21 04/05/2021 BMP + IONIZ ED CALCI UM, SERUM OR PLASM A Hb 13.3 g/dL 12-17 Not Available [address], [address], 04/06/2021 21:55:12 04/05/20 21 04/05/2021 BMP + IONIZ ED CALCI UM, SERUM OR PLASM A glu 173 mg/dL 70-105 Not Available [address], [address], 04/06/2021 21:54:02 04/05/20 21 04/05/2021 BMP + IONIZ ED CALCI UM, SERUM OR PLASM A BUN 23 mg/dL 8-26 Not Available [address], [address], 04/06/2021 21:54:02 04/05/20 21 04/05/2021 BMP + IONIZ ED CALCI UM, SERUM OR PLASM A crea 1.1 mg/dL 0.6-1. 3 Not Available [address], [address], 04/06/2021 21:54:02 04/05/20 21 04/05/2021 BMP + IONIZ ED CALCI UM, SERUM OR PLASM A Na 133 mmol/ L 138-14 6 Not Available [address], [address], 04/06/2021 21:54:02 04/05/20 21 04/05/2021 BMP + IONIZ ED CALCI UM, SERUM OR PLASM A K 2.9 mmol/ L 3.5-4. 9 Not Available [address], [address], 04/06/2021 21:54:02 04/05/20 21 04/05/2021 BMP + IONIZ ED CALCI UM, SERUM OR PLASM A cL 94 mmol/ L 98-109 Not Available [address], [address], 04/06/2021 21:54:02 04/05/20 21 04/05/2021 BMP + IONIZ ED CALCI UM, SERUM OR PLASM A TCO2 25 mmol/ L 24-29 Not Available [address], [address], 04/06/2021 21:54:02 04/05/20 21 04/05/2021 BMP + IONIZ ED CALCI UM, SERUM OR PLASM A angap 18 mmol/ L 10-20 Not Available [address], [address], 04/06/2021 21:54:02 04/05/20 21 04/05/2021 BMP + IONIZ ED CALCI UM, SERUM OR PLASM A ica 1.13 mmol/ L 1.12-1 .32 Not Available [address], [address], 04/06/2021 21:54:02 04/05/20 21 04/05/2021 BMP + IONIZ ED CALCI UM, SERUM OR PLASM A HCT 42 %pcv 38-51 Not Available [address], [address], 04/06/2021 21:54:02 04/05/20 21 04/05/2021 BMP + IONIZ ED CALCI UM, SERUM OR PLASM A Hb 14.3 g/dL 12-17 Not Available [address], [address], 04/06/2021 21:54:02 08/17/19 19 US, duple x, venou s, lower extre mity No observ ation record ed. [facility] [address], [place], [address], 08/18/2018 12:36:10 Result Notes None recorded. Procedures Surgical History Date Name Laterality Status Provider Name and Address Organization Details Recorded Time 04/05/20 21 IV Start Procedure - completed ABIOLA HENRIQUEZ NP [address] [place], [address], [place] [facility] 04/05/2021 19:16:57 04/16/20 20 Venipuncture - completed MAR[place] CORNEJO [address], [place], [address], [place] [facility] 04/16/2020 14:51:42 08/16/19 19 Venipuncture - completed MARQUIS MELENDEZ [address], [place], [address], [place] [facility] 08/23/2018 03:49:42 Imaging Results None recorded. Procedure Notes None recorded. Medical Equipment None Reported. Allergies Allergen ID Allergen Name Allergen Category Reaction Reaction Severity Criticality Documentation Date Start Date Code Code System Note Provider Name and Address Organization Details Recorded Time 03677 nifedipin e medicatio n Not available Not available Not available 08/16/2018 7417 RxNorm MAR[place] MELENDEZ [address] [place], [address], [place] [facility] 9 20:56:14 [...] /min 98.8 [degF] 136/72 mm[Hg] Not Available [facility] 0 10:53:39 Social History Question Answer Notes LastModified by Organizat ion Details LastModified Time Tobacco Smoking Status Never Smoker [place] MELENDEZ [address] [facility] [place], [address], [place] [facility] 08/16/2018 20:59:48 Do You [...] Response Diabetes Y Coronary Artery Disease Y Cancer N Stroke N Asthma Y COPD N Depression Y High Cholesterol Y Pulmonary Embolism N Hypertension Y Kidney Disease N Gynecological HistoryNo gynecological history recorded. Obstetrics History GPAL:G 0 P 0 0 0 0 Past Encounters Encounter ID Performer Location Encounter Start Date Encounter Closed Date Diagnosis/Indication Diagnosis SNOMED-CT Code Diagnosis ICD10 Code Diagnosis IMO Codes Diagnosis Note [id number] [place] MELENDEZ [facility] [address] [facility] [place] [address] 08/16/2018 20:47:49 08/17/2018 17:09:07 Gout 48126305 M10.9 Hypokalemia 50612510 E87 .6 patient restarted Potassium supplement s [id number] [place] CORNEJO [facility] [address] [place] [address] 04/16/2020 10:31:42 04/22/2020 13:56:04 Diarrhea 27298521 R19.7 Lymphedema of bilateral lower limbs 8547144962 9310014 I89.0 Hypokalemia 66503820 E87 .6 [id number] ABIOLA HENRIQUEZ NP [facility] [address] [facility] [place] [address] 04/05/2021 17:40:10 04/07/2021 09:34:21 Dehydration 65854383 E86.0 Nausea 602384833 R11.0 Hypokalemia 75675036 E87 .6 Exposure t o communicable disease 479114489 Z20.9 Viral syndrome 190179780 B34.9 Health Concerns Section Related Observation LastModified by Organization Detai ls LastModified Time None Recorded Concern Status LastModified by Organization Details LastModified Time None Recorded Advance Directives Directive N: Payers Insurance Date Sequence Insurance Name Policy Number Policy Buck Covered Member ID Buck Member ID Guarantor Name 04/05/2021 1 [place]ARE B-[place]: [employer] Cyn Urias [id number] Cyn Adenpo 08/16/2018 1 *SELF PAY* Cyn Adenpo [id number] Cyn Adenpo 04/07/2021 2 [place] [facility] Cyn Urias [id number] Cyn Adenpo Notes Date Note Type Note Provider Name and Address Organization Details Recorded Time 08/16/2018 text/html Mrs. Urias is a 78 yo female new to [facility] and this provider who presents with complain of foot pain and swelling. Patient speaks very little Filipino and her two daughters were present on [...] cholesterol, HTN MARQUIS MELENDEZ [address], [place], [address], [place] [facility] 08/23/2018 03:49:53 04/16/2020 text/html 79yo [...] sandwich daily. MARQUIS CORNEJO [address], [place], [address], [place] [facility] 04/17/2020 12:35:24 04/05/2021 text/html General HPI Template - DHReported by Patient 80 yo [place]dean speaking female who is known to but [...] all prescription medications. ABIOLA HENRIQUEZ NP [address], [place], [address], [place] [facility] 04/05/2021 19:44:57 OBGyn Episode No OBEpisode recorded.
[2025-06-15 13:16] LABS: MANUAL DIFF FLAG NO
[2025-06-15 13:36] LABS: Hematocrit 35.9 % (37.0-47.0); Hemoglobin 11.5 g/dl (12.0-16.0); Imm Gran Abs Auto 0.02 X10*3/uL (0.00-0.03); Imm Gran Pct Auto 0.3 % (0.0-0.4); Lymphocytes Absolute Auto 2.1 X10*3/uL (1.2-4.9); Mean Corpuscular HGB Conc 32.0 g/dl (31.0-35.0); Mean Corpuscular Hemoglobin 33.0 pg (27.0-33.0); Mean Corpuscular Volume 103.2 fL (80.0-98.0); NRBC Abs Auto 0.000 X10*3/uL (0.0-0.012); NRBC Pct Auto 0.0 /100WBC (0.0-0.2); Platelet Count 290 X10*3/uL (160-400); Red Blood Count 3.48 X10*6/uL (4.20-5.50); White Blood Count 7.1 X10*3/uL (4.8-10.8)
[2025-06-15 13:55] LABS: Alanine Aminotransferase 14 U/L (0-31); Albumin Level 4.2 g/dL (3.5-5.0); Alkaline Phosphatase 69 U/L (39-117); Anion Gap 12 (12-20); Aspartate Amino Transferase 37 U/L (5-31); Blood Urea Nitrogen 18 mg/dL (9-16); Calcium 10.2 mg/dL (8.4-10.2); Carbon Dioxide 23 mmol/L (22-29); Chloride 109 mmol/L (96-108); Cholesterol 147 mg/dL (<200); Estimated Glomerular Filt Rate 59; HDL Cholesterol 44 mg/dL (>40); Iron 101 mcg/dL (30-160); Magnesium 2.0 mg/dL (1.6-2.6); Percent Iron Saturation 33 % (15-50); Potassium 4.4 mmol/L (3.3-5.1); Sodium 140 mmol/L (135-145); Total Iron Binding Capacity 309 mcg/dL (228-428); Total Protein 7.6 g/dL (6.5-8.0); Triglycerides 200 mg/dL (<150); Unsaturated Iron Binding 208 ug/dL; Uric Acid 6.5 mg/dL (2.4-5.7)
[2025-06-15 14:03] LABS: Microalbum/Creatinine Ratio Ur 264.6 ug/mg cr (<30)
[2025-06-15 14:15] LABS: Ferritin 37 ng/mL (10-250)
[2025-06-15 14:16] LABS: Vitamin B12 472 pg/mL (200-900)
== END 2025-06-15 09:34 | disposition home or self-care (01) ==
LOC: HO.HKASLDS 09:33
PROVIDERS: PCP Internal Medicine; Visit Provider Internal Medicine
DX: I12.9 Hypertensive chronic kidney disease with stage 1 through stage 4 chronic kidney disease, or unspecified chronic kidney disease (principal); E11.69 Type 2 diabetes mellitus with other specified complication; E11.22 Type 2 diabetes mellitus with diabetic chronic kidney disease; I48.91 Unspecified atrial fibrillation; E66.9 Obesity, unspecified; E05.90 Thyrotoxicosis, unspecified without thyrotoxic crisis or storm; N18.30 Chronic kidney disease, stage 3 unspecified; M10.9 Gout, unspecified
CPT/HCPCS: 36415; 80053; 80061; 82043; 82306; 82570; 82607; 82728; 83036; 83540; 83735; 84443; 84550; 85025